=== PATIENT | female | born 1970 | race Caucasian/White ===

== ENCOUNTER 2017-05-09 11:31 | Day surgery (SDC) | payer OTHER ==
[2017-05-08 11:51] VITALS: BP 110/68
[~2017-05-09] VITALS: Ht 180.3 cm; Wt 117.5 kg
[~2017-05-09 11:31] MED LIST: ALBU1.25 NEB; ALBU8.5H3 INH; ALPR-475 PO; BUDE1AMP NEB; BUPIVACAINE/PF 0.5% ONE; BUPR300T49 PO; BUTA1CAP57 PO; CITA40TA12 PO; DIPH25CA61 PO; DIVA500T4 PO; EPINEPHRINE 1 MG/ML, 1ML ONE; FLUT1DIS IH; FLUT9.9S NS; GABA400C PO; METH500T97 PO; MULT-658 PO; NEOSPORIN OINT, 15GM ONE; OMEP20TA62 PO; OXYC-229 PO; OXYC20TA42 PO; RAME8TAB8 PO; SUMA1TAB PO
[2017-05-09] MEDS ORDERED: LIDOCAINE 1%, 2ML ONE (13:38)
[2017-05-09] MEDS ORDERED: LACTATED RINGERS 1,000 ML IV SCH (13:45)
[2017-05-09] MEDS ORDERED: LIDOCAINE 1%, 2ML SQ PRN (14:00)
[2017-05-09] MEDS ORDERED: FENTANYL PF 250 MCG/5ML ONE (14:35)
[2017-05-09] MEDS ORDERED: MIDAZOLAM 1 MG/ML, 2ML ONE (14:35)
[2017-05-09] MEDS ORDERED: NEOSTIGMINE 1 MG/ML, 10ML ONE (15:24)
[2017-05-09] MEDS ORDERED: ROCURONIUM 10 MG/ML ONE (15:24)
[2017-05-09] MEDS ORDERED: PROPOFOL 10 MG/ML, 20ML ONE (15:24)
[2017-05-09] MEDS ORDERED: GLYCOPYRROLATE 0.2MG/1ML ONE (15:24)
[2017-05-09] MEDS ORDERED: CEFAZOLIN 1,000 MG ONE (15:24)
[2017-05-09] MEDS ORDERED: SUCCINYLCHOLINE 20 MG/ML, 10ML ONE (15:24)
[2017-05-09] MEDS ORDERED: OXYcodone/APAP 5/325MG TABLET PO PRN (15:30)
[2017-05-09] MEDS ORDERED: BUTALB PO SCH (15:30)
[2017-05-09] MEDS ORDERED: SUMATRIPTAN SUCC PO PRN (15:30)
[2017-05-09] MEDS ORDERED: CAFFEINE PO SCH (15:30)
[2017-05-09] MEDS ORDERED: TEMPLATE NON-FORMULARY MED. (Albuterol Sulfate (Proair Hfa) 0 PUFF) INH PRN (15:30)
[2017-05-09] MEDS ORDERED: PROMETHAZINE 25 MG/ML, 1ML IM PRN (15:30)
[2017-05-09] MEDS ORDERED: DIPHENHYDRAMINE 25 MG CAPSULE PO SCH (15:30)
[2017-05-09] MEDS ORDERED: [UNRECOGNIZED DRUG - OTHER] PO PRN (15:30)
[2017-05-09] MEDS ORDERED: ACETAMINOPHEN PO SCH (15:30)
[2017-05-09] MEDS ORDERED: ONDANSETRON 2MG/ML, 2ML IVPush PRN (15:30)
[2017-05-09] MEDS ORDERED: [UNRECOGNIZED DRUG - OTHER] PO SCH (15:30)
[2017-05-09] MEDS ORDERED: TEMPLATE NON-FORMULARY MED. (Albuterol Sulfate (Albuterol Sulfate**) 1 VIAL) NEB PRN (15:30)
[2017-05-09] MEDS ORDERED: NAPROXEN SOD PO PRN (15:30)
[2017-05-09] MEDS ORDERED: BUDESONIDE NEB PRN (15:30)
[2017-05-09] MEDS ORDERED: OXYcodone/APAP 10/325MG TABLET PO SCH (16:00)
[2017-05-09] MEDS ORDERED: FENTANYL PF 100 MCG/2ML IV PRN (16:00)
[2017-05-09] MEDS ORDERED: OxyconTIN ER 20 MG TAB.ER PO SCH (16:00)
[2017-05-09] MEDS: ALBUTEROL SULFATE 2.5 MG/3 ML NPPB PRN ×2 (16:35→16:45)
[2017-05-09] MEDS ORDERED: RAMELTEON PO SCH (21:00)
[2017-05-09] MEDS ORDERED: METHOCARBAMOL 500 MG TABLET PO SCH (21:00)
[2017-05-09] MEDS ORDERED: DIVALPROEX 500 MG TAB.ER.24H PO SCH (21:00)
[2017-05-09] MEDS ORDERED: TEMPLATE NON-FORMULARY MED. (Omeprazole Magnesium** (Prilosec Otc**) 20 MG) PO SCH (21:00)
[2017-05-09] MEDS ORDERED: GABAPENTIN 400 MG CAPSULE PO SCH (21:00)
[2017-05-10] MEDS ORDERED: MULTIVITAMIN 1 TABLET PO SCH (09:00)
[2017-05-10] MEDS ORDERED: CITALOPRAM HYDROBROMIDE 40 MG PO SCH (09:00)
[2017-05-10] MEDS ORDERED: TEMPLATE NON-FORMULARY MED. (Fluticasone/Salmeterol** (Advair 100-50 Diskus**) 1 PUFF) IH SCH (09:00)
[2017-05-10] MEDS ORDERED: TEMPLATE NON-FORMULARY MED. (Bupropion Hcl** (Wellbutrin Xl**) 300 MG) PO SCH (09:00)
[2017-05-10] MEDS ORDERED: TEMPLATE NON-FORMULARY MED. (Fluticasone Propionate (Flonase Allergy Relief) 1 SPRAY) NS SCH (09:00)
== END 2017-05-09 18:40 ==
LOC: OUT 11:31
PROVIDERS: ATTEND Orthopaedic Surgery Orthopaedic Surgery of the Spine
DX: T85.193A Other mechanical complication of implanted electronic neurostimulator, generator, initial encounter (principal); J45.909 Unspecified asthma, uncomplicated; K21.9 Gastro-esophageal reflux disease without esophagitis; I10 Essential (primary) hypertension; Z88.8 Allergy status to other drugs, medicaments and biological substances; Z88.6 Allergy status to analgesic agent; Z91.030 Bee allergy status; Z91.040 Latex allergy status; Y83.8 Other surgical procedures as the cause of abnormal reaction of the patient, or of later complication, without mention of misadventure at the time of the procedure; Y92.89 Other specified places as the place of occurrence of the external cause
CPT/HCPCS: 63688; 87070; 87075; 87186; 87205; 94640; J0171; J0330; J0690; J2250; J2704; J2710; J3010; J3490; J7120; J7613

== ENCOUNTER 2017-08-16 11:43 | Inpatient (IN) | payer OTHER ==
[~2017-08-16] VITALS: Ht 180.3 cm; Wt 122.2 kg
[~2017-08-16 11:43] MED LIST changes: -ALBU8.5H3 INH; +ALBU8.5H8 INH; -BUPIVACAINE/PF 0.5% ONE; -EPINEPHRINE 1 MG/ML, 1ML ONE; -NEOSPORIN OINT, 15GM ONE; -OXYC-229 PO; +OXYC-307 PO; +RAME8TAB19 PO; -RAME8TAB8 PO
[2017-08-16] MEDS ORDERED: LACTATED RINGERS 1,000 ML IV SCH (12:28)
[2017-08-16] MEDS ORDERED: DOXY150T PO (12:30)
[2017-08-16 12:33] VITALS: BP 120/81
[2017-08-16 12:43] VITALS: BP 120/81
[2017-08-16] MEDS ORDERED: FENTANYL PF 100 MCG/2ML ONE ×3 (12:51→14:57)
[2017-08-16] MEDS ORDERED: MIDAZOLAM 1 MG/ML, 2ML ONE (12:51)
[2017-08-16] MEDS ORDERED: ACETAMINOPHEN 325 MG TABLET PO PRN ×2 (13:00→14:30)
[2017-08-16] MEDS ORDERED: ONDANSETRON 2MG/ML, 2ML IVPush PRN ×2 (13:00→14:30)
[2017-08-16] MEDS ORDERED: PROMETHAZINE 25 MG/ML, 1ML IV PRN ×2 (13:00→14:30)
[2017-08-16] MEDS ORDERED: OXYcodone 5 MG/5 ML ORAL.SOL UDC PO PRN ×2 (13:00→14:30)
[2017-08-16] MEDS ORDERED: MEPERIDINE/PF 25MG/0.5ML IVPush PRN ×2 (13:00→14:30)
[2017-08-16] MEDS ORDERED: LABETALOL 5MG/ML, 20ML IV PRN ×2 (13:00→14:30)
[2017-08-16] MEDS ORDERED: hydrALAzine 20 MG/ML, 1ML IV PRN ×2 (13:00→14:30)
[2017-08-16] MEDS ORDERED: LIDOCAINE/MPF 2%-EPI 1:200K, 20 ML ONE (13:22)
[2017-08-16] MEDS ORDERED: THROMBIN 5,000 UNIT VIAL TP ONE (13:22)
[2017-08-16] MEDS ORDERED: TRANEXAMIC ACID 100 MG/ML, 10ML ONE (13:22)
[2017-08-16] MEDS ORDERED: VANCOMYCIN 1,000 MG ONE (13:22)
[2017-08-16] MEDS ORDERED: ONDANSETRON 2MG/ML, 2ML ONE (13:45)
[2017-08-16] MEDS ORDERED: DEXAMETHASONE 4 MG/ML, 1ML ONE (13:45)
[2017-08-16] MEDS ORDERED: ROCURONIUM 10 MG/ML ONE (13:45)
[2017-08-16] MEDS ORDERED: PROPOFOL 10 MG/ML, 20ML ONE (13:45)
[2017-08-16] MEDS ORDERED: ALBUTEROL/IPRATROPIUM 2.5MG/0.5MG, 3 ML NPPB PRN (14:30)
[2017-08-16] MEDS ORDERED: ALBUTEROL SULFATE 2.5 MG/3 ML NPPB PRN (14:30)
[2017-08-16] MEDS ORDERED: FENTANYL PF 100 MCG/2ML IV PRN (14:30)
[2017-08-16] MEDS ORDERED: OXYcodone 5 MG/5 ML ORAL.SOL UDC ONE (14:57)
[2017-08-16] MEDS ORDERED: DIPHENHYDRAMINE 50 MG/ML, 1ML ONE (14:57)
[2017-08-16] MEDS ORDERED: morphine SULFATE 10 MG/ML, 1ML ONE (14:57)
[2017-08-16] MEDS: FENTANYL PF 100 MCG/2ML IV PRN ×2 (15:00→15:20)
[2017-08-16] MEDS: morphine SULFATE 10 MG/ML, 1ML IV PRN ×4 (15:10→15:45)
[2017-08-16] MEDS ORDERED: DIPHENHYDRAMINE 50 MG/ML, 1ML IVPush ONE (15:30)
[2017-08-16] MEDS ORDERED: LIDOCAINE/PF 1%, 30ML ONE (16:13)
[2017-08-16] MEDS: CEFAZOLIN PMX 2GM/50ML 50 ML IVPB SCH (17:18)
[2017-08-16] MEDS: morphine SULFATE 10 MG/ML, 1ML IVPush PRN ×4 (18:25→23:11)
[2017-08-16] MEDS ORDERED: PROMETHAZINE 25 MG/ML, 1ML IM PRN (18:30)
[2017-08-16] MEDS ORDERED: OXYcodone/APAP 5/325MG TABLET PO PRN (18:30)
[2017-08-16] MEDS ORDERED: DIPHENHYDRAMINE 25 MG CAPSULE PO PRN ×2 (18:30→21:00)
[2017-08-16] MEDS ORDERED: BISACODYL 10 MG SUPP PR PRN (18:30)
[2017-08-16] MEDS ORDERED: ONDANSETRON 2MG/ML, 2ML IV PRN (18:30)
[2017-08-16] MEDS ORDERED: MAGNESIUM HYDROXIDE 8%, 30ML UDC PO PRN (18:30)
[2017-08-16 19:48] VITALS: BP 131/82
[2017-08-16 20:38] VITALS: BP 127/76
[2017-08-16] MEDS ORDERED: NAPROXEN SODIUM PO PRN ×2 (21:00→22:00)
[2017-08-16] MEDS ORDERED: DIVALPROEX 500 MG TAB.ER.24H PO SCH (21:00)
[2017-08-16] MEDS ORDERED: BUTALB/APAP/CAFFEINE 50MG/325MG/40MG PO PRN (21:00)
[2017-08-16] MEDS ORDERED: METHOCARBAMOL 500 MG TABLET PO PRN (21:00)
[2017-08-16] MEDS ORDERED: BUDESONIDE 0.5 MG/2 ML INHA INH PRN (21:00)
[2017-08-16] MEDS ORDERED: [UNRECOGNIZED DRUG - OTHER] PO PRN (21:00)
[2017-08-16] MEDS ORDERED: RAMELTEON PO SCH (21:00)
[2017-08-16] MEDS ORDERED: OXYcodone/APAP 10/325MG TABLET PO PRN (21:00)
[2017-08-16] MEDS ORDERED: SUMATRIPTAN PO PRN (22:00)
[2017-08-16 23:05] VITALS: BP 112/70
[2017-08-16] MEDS: OxyconTIN ER 20 MG TAB.ER PO SCH (23:12)
[2017-08-16] MEDS: OMEPRAZOLE 20 MG CAPSULE.DR PO SCH (23:13)
[2017-08-17] MEDS: GABAPENTIN 400 MG CAPSULE PO SCH ×2 (00:03→08:57)
[2017-08-17] MEDS: OXYcodone/APAP 10/325MG TABLET PO PRN ×5 (00:18→17:16)
[2017-08-17] MEDS: CEFAZOLIN PMX 2GM/50ML 50 ML IVPB SCH ×2 (02:10→10:21)
[2017-08-17 04:00] VITALS: BP 99/62
[2017-08-17] MEDS ORDERED: FLU VACC QS2017-18 (36MOS+) UP/PF 0.5 ML IM-VACC ONE ×2 (04:30)
[2017-08-17] MEDS ORDERED: PNEUMOCOCCAL 23 VACCINE IM-VACC ONE (04:30)
[2017-08-17] MEDS ORDERED: BUPROPION SR 150 MG TABLET PO SCH ×2 (06:00→09:00)
[2017-08-17] MEDS ORDERED: CITALOPRAM 20 MG TABLET PO SCH (06:00)
[2017-08-17 07:25] VITALS: BP 102/49
[2017-08-17] MEDS: OMEPRAZOLE 20 MG CAPSULE.DR PO SCH (08:57)
[2017-08-17] MEDS ORDERED: DOXYCYCLINE 50MG CAPSULE PO SCH (09:00)
[2017-08-17] MEDS ORDERED: SENNA/DOCUSATE TABLET PO SCH (09:00)
[2017-08-17] MEDS: OxyconTIN ER 20 MG TAB.ER PO SCH (09:02)
[2017-08-17] MEDS ORDERED: OXYC-307 PO (11:30)
[2017-08-17 17:17] VITALS: BP 112/76
== END 2017-08-17 17:49 | disposition home or self-care (01) | DRG 902 ==
LOC: OUT 11:43 → 4NOR 17:40 → OUT 18:01 → 4NOR 18:01
PROVIDERS: ADMIT Orthopaedic Surgery Orthopaedic Surgery of the Spine; ATTEND Orthopaedic Surgery Orthopaedic Surgery of the Spine
PROC: 0JB70ZZ Excision of Back Subcutaneous Tissue and Fascia, Open Approach (ICD-10-PCS; principal; 2017-08-16 13:30)
DX: G97.64 Postprocedural seroma of a nervous system organ or structure following other procedure (principal); T81.30XA Disruption of wound, unspecified, initial encounter; Y83.8 Other surgical procedures as the cause of abnormal reaction of the patient, or of later complication, without mention of misadventure at the time of the procedure; K21.9 Gastro-esophageal reflux disease without esophagitis; Z88.5 Allergy status to narcotic agent; Z88.8 Allergy status to other drugs, medicaments and biological substances; Z91.030 Bee allergy status; Z91.041 Radiographic dye allergy status; Z23 Encounter for immunization
CPT/HCPCS: 87070; 87075; 87077; 87186; 87205; 90686; 90732; J0690; J1100; J2250; J2405; J2704; J3010; J3370; J3490; J1200; J2270; J7120